=== PATIENT | female | born 1990 | race Caucasian/White ===

== ENCOUNTER 2021-02-13 02:01 | Inpatient (IN) | payer OTHER ==
[2021-02-13] MEDS ORDERED: Nalbuphine 10 MG/1 ML Vial IVPUSH PRN (02:43)
[2021-02-13] MEDS ORDERED: Oxytocin/Lactated Ringers 10 UNIT/1,000 ML BAG IV SCH ×2 (02:45)
[2021-02-13] MEDS ORDERED: Lactated Ringers 1,000 ML IV SCH (02:45)
[2021-02-13] MEDS ORDERED: Lidocaine 1% 50 ML MDV ONE (05:14)
--- NOTE | 2021-02-13 06:14 | PCM.LDHP ---
L&D History of Present Illness - General Date of Service: 02/13/21 Admit Problem/Dx: Patient Status Order with Admit Dx/Problem 02/13/21 02:13 Patient Status [ADT] Routine 02/13/21 02:43 Patient Status [ADT] Routine Admission Diagnosis/Problem Admission Diagnosis/Problem 02/13/21 06:05 Genna is a 31-year-old 1 now para 1-0-0-1 female at 38-5/7 weeks gestational age with an MARINA of 02/22/2021 who was admitted on the a.m. of 02/13/2021 in active labor, with rapidly advancing cervical dilation. Source of Information: Patient History Limitations: Reports: No Limitations - History of Present Illness Introduction:: Genna is a 31-year-old 1 now para 1-0-0-1 female at 38-5/7 weeks gestational age with an MARINA of 02/22/2021 who was admitted on the a.m. of 02/13/2021 in active labor, with rapidly advancing cervical dilation. She is a patient of Dr. Lombardo. History and physical was done after the delivery. Genna reportedly started contractions about the middle of the night. They rapidly progressed to every 3 minutes and intense. She had what arrived in the hospital and was 4 to 5 cm. heart tones were reassuring for the most part. Contractions confirmed at the rate described above. They were very intense. Patient had some bleeding. Membranes appeared intact and time of ru pture membranes is not definite. Minimal fluid was noted. She progressed to complete cervical dilation and delivered rapidly within the course of 2-3 pushes. 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 MARINA 02/22/2021 was determined by an early ultrasound done on 07/04/2020. Patient was seen on a very early basis at 5 weeks and 5 days and was seen regularly during . Her weight gain was from 158 to approximately 159 pounds fundal height growth was normal for gestational age. No problems were encountered during the course of the . Laboratory testing in shows blood to be O- with a negative antibody screen. First hemoglobin was 13.9 and platelets were 191,000. She is rubella positive. RPR was nonreactive. Hepatitis B surface antigen and hepatitis C assays were both negative. Chlamydia and gonorrhea not detected. 1 hour GTT was normal at 104. Second trimester hemoglobin done most recently on 12/05/2020 was 12.0 and platelets were 165,000. Diabetic screen was negative and patient did receive Rh immunoglobulin during the course of the . Group B strep screen negative. Allergies: None Medications: 1. vitamins 1 daily 2. Folic acid 1 tablet/day 3. Flonase 2 sprays in each nostril 1 time per day as needed for allergy Past medical history: 1. Medical history of Hodgkin's lymphoma Past surgical history: 1. Teeth extraction 2014 2. Subcutaneous port placement 2069 related to her Hodgkin's lymphoma Social history: Patient is . Significant other is Aquilino. He is a never smoker. No significant drug or alcohol use noted. They live in [place]. He works outside the home. Family history: Father with hypertension, prostate cancer, skin cancer. Sister with thyroid disease. Mother with skin cancer none MALToma type. Maternal grandfather with heart disease. Paternal grandmother with stomach cancer. Paternal grandfather with heart disease. Review of systems: Upon admission patient was antwan regularly with intense contractions. She did report activity. No loss of fluid noted some bloody show present. In general the patient is well-developed, well-nourished, pleasant female of stated age in no acute distress after the delivery. Skin is warm dry without lesions. HEENT, neck and back within normal limits. Lungs are clear with good breath sounds in all lung pond per nurse evaluation. Cardiovascular exam shows regular and rhythm without murmurs per nurse evaluat ion. Abdomen is gravid with fundal height consistent with dates.. Genital digital exam showed complete cervical dilation patient at the time of first. 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: Oncologic (Cancer) History: Reports: Hodgkin's Lymphoma - Past Surgical History HEENT Surgical History: Reports: Oral Surgery Other HEENT Surgeries/Procedures: wears glasses Social & Family History - Family History Family Medical History: No Pertinent Family History - Tobacco Use Tobacco Use Status *Q: Never Tobacco User Second Hand Smoke Exposure: No - Caffeine Use Caffeine Use: Reports: None - Recreational Drug Use Recreational Drug Use: No H&P Review of Systems - Review of Systems: Review Of Systems: See Below L&D Exam - Exam Exam: See Below - Vital Signs Vital Signs: Last Vital Signs Temp 36.3 C 02/13/21 02:43 Pulse 74 02/13/21 02:43 Resp 16 02/13/21 02:43 BP 138/91 H 02/13/21 02:43 Pulse Ox 100 02/13/21 02:43 Weight: 73.663 kg - Patient Data Lab Results Last 24 hrs: Laboratory Results - last 24 hr 02/13/21 02/13/21 Range/Units 02:45 03:00 WBC 11.11 H (3.98-10.04) K/mm3 RBC 4.02 (3.98-5.22) M/mm3 Hgb 12.9 (11.2-15.7) gm/dl Hct 36.9 (34.1-44.9) % MCV 91.8 (79.4-94.8) fl MCH 32.1 (25.6-32.2) pg MCHC 35.0 (32.2-35.5) g/dl RDW Std Deviation 43.5 (36.4-46.3) fL Plt Count 147 L (182-369) K/mm3 MPV 9.3 L (9.4-12.3) fl Neut % (Auto) 75.5 H (34.0-71.1) % Lymph % (Auto) 17.4 L (19.3-51.7) % [place] % (Auto) 5.9 (4.7-12.5) % Eos % (Auto) 0.7 (0.7-5.8) Baso % (Auto) 0.2 (0.1-1.2) % Neut # (Auto) 8.40 H (1.56-6.13) K/mm3 Lymph # (Auto) 1.93 (1.18-3.74) K/mm3 [place] # (Auto) 0.65 H (0.24-0.36) K/mm3 Eos # (Auto) 0.08 (0.04-0.36) K/mm3 Baso # (Auto) 0.02 (0.01-0.08) K/mm3 SARS-CoV-2 RNA (ILSA) Negative (NEGATIVE) Result Diagrams: 02/13/21 03:00 - Problem List (1) 38 weeks gestation of SNOMED Code(s): 33805792 ICD Code: Z3A.38 - 38 WEEKS GESTATION OF Status: Acute Current Visit: Yes Problem List Initiated/Reviewed/Updated: Yes Orders Last 24hrs: Active Orders 24 hr Category Date Time Status Patient Status [ADT] Routine ADT 02/13/21 02:43 Active Activity as Tolerated [RC] PFP Care 02/13/21 02:43 Active Communication Order [RC] ASDIRECTED Care 02/13/21 02:43 Active Heart Tones [RC] ASDIRECTED Care 02/13/21 02:43 Active Non Stress Test [RC] PER UNIT ROUTINE Care 02/13/21 02:13 Active Notify Provider [RC] PFP Care 02/13/21 02:43 Active Notify Provider [RC] PRN Care 02/13/21 02:43 Active Peripheral IV Care [RC] Q4HR Care 02/13/21 02:43 Active Pump Management, Intrathecal [RC] ASDIRECTED Care 02/13/21 02:44 Active Up ad Romy [RC] ASDIRECTED Care 02/13/21 02:14 Active Urinary Catheter Assessment [RC] ASDIRECTED Care 02/13/21 02:43 Active Vaginal Exam [RC] PRN Care 02/13/21 02:14 Active Vital Signs [RC] PER UNIT ROUTINE Care 02/13/21 02:13 Active Vital Signs [RC] PER UNIT ROUTINE Care 02/13/21 02:43 Active Regular Diet [DIET] Diet 02/13/21 Breakfast Active RAPID PLASMA REAGIN,RPR [CHEM] Routine Lab 02/13/21 03:00 Received Lactated Ringers [Ringers, Lactated] 1,000 ml Med 02/13/21 02:45 Active IV ASDIRECTED Nalbuphine [Nubain] Med 02/13/21 02:43 Active 10 mg IVPUSH Q2H PRN Oxytocin/Lactated Ringers [Pitocin in LR 10 Units/1,000 Med 02/13/21 02:45 Active ML] 10 unit in 1,000 ml IV .CONTINUOUS Oxytocin/Lactated Ringers [Pitocin in LR 10 Units/1,000 Med 02/13/21 02:45 Active ML] 10 unit in 1,000 ml IV .CONTINUOUS Sodium Chloride 0.9% [Saline Flush] Med 02/13/21 09:00 Active 10 ml FLUSH 0900,2100 Electronic Heart Tones Ext w TOCO [WOMSER] Oth 02/13/21 02:43 Ordered Routine Electronic Heart Tones Internal [WOMSER] Per Unit Ot 02/13/21 02:43 Ordered Routine Peripheral IV Insertion Adult [OM.PC] Routine Oth 02/13/21 02:43 Ordered Resuscitation Status Routine Resus Stat 02/13/21 02:13 Ordered Medication Orders Lactated Ringer's (Ringers, Lactated) 1,000 mls @ 100 mls/hr IV ASDIRECTED JANELL Oxytocin/Lactated Ringer's (Pitocin In Lr 10 Units/1,000 Ml) 10 unit in 1,000 mls @ 500 mls/hr IV .CONTINUOUS JANELL Oxytocin/Lactated Ringer's (Pitocin In Lr 10 Units/1,000 Ml) 10 unit in 1,000 mls @ 100 mls/hr IV .CONTINUOUS JANELL Nalbuphine HCl (Nalbuphine 10 Mg/1 Ml Vial) 10 mg IVPUSH Q2H PRN PRN Reason: Pain Sodium Chloride (Sodium Chloride 0.9% 10 Ml Syringe) 10 ml FLUSH 0900,2100 [facility] Assessment/Plan Comment:: 1.Genna is a 31-year-old 1 now para 1-0-0-1 female at 38-5/7 weeks gestational age with an MARINA of 02/22/2021 who was admitted on the a.m. of 02/13/2021 in active labor, with rapidly advancing cervical dilation. H&P done after delivery 2. Group B strep negative 3. Patient preferred not to have disease during 4. Patient plans to breast-feed Plan: 1. Support breast-feeding decision 2. Routine care including analgesia, support, monitoring 3. Rh immunoglobulin as indicated by blood testing.
--- NOTE | 2021-02-13 06:21 | PCM.SN.2 ---
- Free Text/Narrative Note: Delivery note: Stage I: Genna is a 31-year-old 1 now para 1-0-0-1 female at 38-5/7 weeks gestational age with an MARINA of 02/22/2021 who was admitted on the a.m. of 02/13/2021 in active labor, with rapidly advancing cervical dilation. Upon my arrival in L&D patient was . She had received no analgesia. heart tones were generally reassuring. Moderate amount of bloody show was noted. No significant mono amniotic fluid present. Contractions/pushing was near continuous. Stage II: Genna delivered a viable, duncan, male with Apgars of 8 and 9, a weight of 2840 g (6 pounds 4 ounces) and a length of 19.5 inches at 0519 hours on 02/13/2021. Baby is placed on mom's abdomen., Nose and mouth were bulb suctioned and baby was dried with warm blanket. Pitocin was increased to 500 cc an hour for IV to facilitate increase in uterine tone and decrease likelihood of bleeding. The baby was vigorous and crying. The umbilical cord is allowed to pulsate x3 minutes and then was clamped x2 and cut by the baby's father Aquilino. The umbilical cord had 3 vessels. Cord blood was obtained. Patient was noted to have 2 medial labia minora lacerations. These were infiltrated with lidocaine 1% - 10 cc total then were repaired with interrupted sutures of 3-0 Monocryl. 2 sutures required on the left side and 4 sutures required on the right side. Patient tolerated this well. Stage III: The placenta delivered at 0526 hrs. It delivered in a Marie presentation, appeared intact and complete and was discarded per patient desire. Small amount of clot was noted behind the placenta and a small abruption of placenta cannot be ruled out. Estimate blood loss was 200 cc. Patient plans to breast-feed. Condition: Good.
[2021-02-13] MEDS ORDERED: Docusate Sodium 100 MG Cap PO PRN (07:18)
[2021-02-13] MEDS ORDERED: Benzocaine/Menthol 20%-0.5% Spray 78 GM Cannister TOP PRN (07:18)
[2021-02-13] MEDS ORDERED: Witch Hazel Medicated Pads 40/Jar TOP PRN (07:18)
[2021-02-13] MEDS ORDERED: Acetaminophen 325 MG Tab PO PRN (07:18)
[2021-02-13] MEDS ORDERED: Ibuprofen 600 MG Tab PO PRN (07:18)
[2021-02-13] MEDS ORDERED: Sodium Chloride 0.9% 10 ML Syringe FLUSH SCH (09:00)
[2021-02-13] MEDS: Prenatal Multivitamin with Calcium/Folic Acid/Iron Tab PO SCH (17:57)
--- NOTE | 2021-02-14 08:16 | PCM.DCSUM1 ---
Discharge Summary - Hospital Course Brief History: Admitted in labor. Relatively rapid uncomplicated thereafter. Uncomplicated course. Diagnosis: Stroke: No - Discharge Data Discharge Date: 02/14/21 Discharge Disposition: Home, Self-Care 01 Condition: Good - Referral to Home Health Primary Care Physician: Mary Lombardo MD - Patient Instructions Diet: Usual Diet as Tolerated Activity: No Strenuous Activities Driving: May Drive Today Showering/Bathing: May Shower - Discharge Plan *PRESCRIPTION DRUG MONITORING PROGRAM REVIEWED*: No *COPY OF PRESCRIPTION DRUG MONITORING REPORT IN PATIENT HELDER: No Home Medications: Home Meds Vits96/Iron Fum/Folic [ Tablet] 1 tab PO DAILY 02/13/21 [History] Referrals: Mary Lombardo MD [Primary Care Provider] - (1 week) - Discharge Summary/Plan Comment DC Time >30 min.: No Total # of Minutes for Discharge Time: 15 - General Info Date of Service: 02/14/21 Functional Status: Reports: Pain Controlled - Review of Systems General: Reports: No Symptoms HEENT: Reports: No Symptoms Pulmonary: Reports: No Symptoms Cardiovascular: Reports: No Symptoms Gastrointestinal: Reports: No Symptoms Genitourinary: Reports: No Symptoms Musculoskeletal: Reports: No Symptoms Skin: Reports: No Symptoms Neurological: Reports: No Symptoms Psychiatric: Reports: No Symptoms - Patient Data Vitals - Most Recent: Last Vital Signs Temp 36.7 C 02/14/21 04:28 Pulse 48 L 02/14/21 04:28 Resp 14 02/14/21 04:28 BP 132/80 02/14/21 04:28 Pulse Ox 99 02/14/21 04:28 Weight - Most Recent: 73.663 kg I&O - Last 24 hours: Intake & Output 02/13/21 02/14/21 02/14/21 22:59 06:59 14:59 Intake Total 240 Balance 240 Lab Results - Last 24 hrs: Laboratory Results - last 24 hr 02/13/21 Range/Units 03:00 RPR Non-reactive (NONREACTIVE) Med Orders - Current: Current Medications Acetaminophen (Acetaminophen 325 Mg Tab) 650 mg PO Q4H PRN PRN Reason: mild pain or fever Benzocaine/Menthol (Benzocaine/Menthol 20%-0.5% [place] 78 Gm Cannister) 0 gm TOP ASDIRECTED PRN PRN Reason: Perineal Comfort Measure Last Admin: 02/13/21 07:25 Dose: 1 can Documented by: Docusate Sodium (Docusate Sodium 100 Mg Cap) 100 mg PO BID PRN PRN Reason: Constipation Ibuprofen (Ibuprofen 600 Mg Tab) 600 mg PO Q4H PRN PRN Reason: Mild pain or fever Prenat Multivit/[place]/Iron/Folic Ac ( Multivitamin With Calcium/Folic Acid/Iron Tab) 1 each PO DAILY [facility] Last Admin: 02/13/21 17:57 Dose: Not Given Documented by: Lauri French (Lauri French Medicated Pads 40/Jar) 1 pad TOP ASDIRECTED PRN PRN Reason: Perineal Comfort Measure Last Admin: 02/13/21 07:24 Dose: 1 tub Documented by: Discontinued Medications Lactated Ringer's (Ringers, Lactated) 1,000 mls @ 100 mls/hr IV ASDIRECTED [facility] Oxytocin/Lactated Ringer's (Pitocin In Lr 10 Units/1,000 Ml) 10 unit in 1,000 mls @ 500 mls/hr IV .CONTINUOUS [facility] Last Admin: 02/13/21 05:25 Dose: 500 mls/hr Documented by: Oxytocin/Lactated Ringer's (Pitocin In Lr 10 Units/1,000 Ml) 10 unit in 1,000 mls @ 100 mls/hr IV .CONTINUOUS [facility] Lidocaine HCl (Lidocaine 1% 50 Ml Mdv) Confirm Administered Dose 50 ml .ROUTE .[facility] ONE Stop: 02/13/21 05:15 Last Admin: 02/13/21 05:30 Dose: 50 ml Documented by: Nalbuphine HCl (Nalbuphine 10 Mg/1 Ml Vial) 10 mg IVPUSH Q2H PRN PRN Reason: Pain Sodium Chloride (Sodium Chloride 0.9% 10 Ml Syringe) 10 ml FLUSH 0900,2100 JANELL - Exam General: Reports: Alert, Oriented HEENT: Reports: Pupils Equal, Pupils Reactive, EOMI, Mucous Membr. Moist/[place] Neck: Reports: Supple Lungs: Reports: Clear to Auscultation, Normal Respiratory Effort Cardiovascular: Reports: Regular Rate, Regular Rhythm GI/Abdominal Exam: Normal Bowel Sounds, Soft, Non-Tender, No Organomegaly, No Distention, No Abnormal Bruit, No Mass, Pelvis Stable Back Exam: Reports: Normal Inspection, Full Range of Motion Extremities: Normal Inspection, Normal Range of Motion, Non-Tender, No Pedal Edema, Normal Capillary Refill Skin: Reports: Warm, Dry, Intact Wound/Incisions: Reports: Healing Well Neurological: Reports: No New Focal Deficit Psy/Mental Status: Reports: Alert, Normal Affect, Normal Mood
[2021-02-14 09:10] VITALS: BP 130/92; PULSE 60
[2021-02-14] MEDS: Prenatal Multivitamin with Calcium/Folic Acid/Iron Tab PO SCH (09:15)
== END 2021-02-14 10:57 | disposition home or self-care (01) | DRG 807 ==
LOC: JD.OBCHECK 02:01 → JD.OB 02:04 → JD.OBCHECK 02:42 → JD.OB 02:43 → OBSVTOIN 05:19 → JD.OB 05:20
PROVIDERS: ADMIT Obstetrics & Gynecology; ATTEND Obstetrics & Gynecology
PROC: 10E0XZZ Delivery of Products of Conception, External Approach (ICD-10-PCS; principal; 2021-02-13)
PROC: 0UQMXZZ Repair Vulva, External Approach (ICD-10-PCS; 2021-02-13)
DX: O70.0 First degree perineal laceration during delivery (principal); Z37.0 Single live birth; Z3A.38 38 weeks gestation of pregnancy; Z20.822 Contact with and (suspected) exposure to COVID-19
CPT/HCPCS: 36415; 59025; 59409; 85025; 86592; J2001; J2590; U0002

== ENCOUNTER 2024-12-27 07:07 | Inpatient (IN) | payer OTHER, BC ==
[2024-12-27] MEDS ORDERED: Ondansetron 4 MG/2 ML SDV IVPUSH PRN (07:34)
[2024-12-27] MEDS ORDERED: Nalbuphine 10 MG/1 ML Vial IVPUSH PRN (07:34)
[2024-12-27] MEDS ORDERED: Oxytocin/0.9 % Sodium Chloride 30 UNIT/500 ML BAG IV SCH (07:45)
[2024-12-27] MEDS ORDERED: Lactated Ringers 1,000 ML IV SCH (07:45)
[2024-12-27 07:59] LABS: BASOPHILS ABSOLUTE AUTO 0.0 K/mm3 (0.0-0.2); BASOPHILS PERCENT AUTO 0.4 % (0.0-1.0); EOSINOPHILS ABSOLUTE AUTO 0.0 K/mm3 (0.0-0.4); EOSINOPHILS PERCENT AUTO 0.2 % (0.0-6.0); IMMATURE GRAN ABSOLUTE AUTO 0.05 K/mm3 (0.00-0.05); IMMATURE GRAN PERCENT AUTO 0.4 % (0.0-0.4); LYMPHOCYTES ABSOLUTE AUTO 1.9 K/mm3 (1.0-4.8); LYMPHOCYTES PERCENT AUTO 16.9 % (24.0-44.0); MEAN PLATELET VOLUME 9.1 fl (9.4-12.3); MONOCYTES ABSOLUTE AUTO 0.5 K/mm3 (0.0-0.8); MONOCYTES PERCENT AUTO 4.4 % (0.0-8.0); NEUTROPHILS ABSOLUTE AUTO 8.7 K/mm3 (1.8-7.7); NEUTROPHILS PERCENT AUTO 77.7 % (41.0-71.0); NRBC ABSOLUTE 0.00 (0.00-0.02); NRBC PERCENT 0.0 % (0.0-0.2); PLATELET COUNT,PLT 151 K/mm3 (150-400); RED BLOOD CELL COUNT 4.15 M/mm3 (4.10-5.30); WHITE BLOOD CELL COUNT,WBC 11.21 K/mm3 (3.9-11.3)
[2024-12-27] MEDS ORDERED: ePHEDrine 50 MG/ML SDV IVPUSH PRN (07:59)
[2024-12-27] MEDS ORDERED: fentaNYL 100 MCG/2 ML SDV EPIDUR PRN (07:59)
[2024-12-27] MEDS ORDERED: Bupivacaine/fentaNYL/NS 100 ML Bag EPIDUR PRN (07:59)
[2024-12-27] MEDS ORDERED: diphenhydrAMINE 50 MG/ML SDV IVPUSH PRN (07:59)
[2024-12-27] MEDS: Oxytocin/0.9 % Sodium Chloride 30 UNIT/500 ML BAG IV SCH (09:07)
[2024-12-27] MEDS: Witch Hazel Medicated Pads 40/Jar TOP PRN (10:53)
[2024-12-27] MEDS: Benzocaine/Menthol 20%-0.5% Spray 78 GM Cannister TOP PRN (10:53)
[2024-12-29 19:58] VITALS: PULSE 66
[2024-12-29 20:07] VITALS: BP 140/82
== END 2024-12-29 20:25 | disposition home or self-care (01) | DRG 807 ==
LOC: JD.OBCHECK 07:07 → JD.OB 07:08 → JD.OBCHECK 07:33 → JD.OB 07:34 → OBSVTOIN 08:59 → JD.OB 09:00
PROVIDERS: ADMIT Obstetrics & Gynecology; ATTEND Obstetrics & Gynecology
PROC: 3E0334Z Introduction of Serum, Toxoid and Vaccine into Peripheral Vein, Percutaneous Approach (ICD-10-PCS; principal; 2024-12-27)
PROC: 10E0XZZ Delivery of Products of Conception, External Approach (ICD-10-PCS; principal; 2024-12-27)
DX: O80 Encounter for full-term uncomplicated delivery (principal); Z37.0 Single live birth; Z3A.37 37 weeks gestation of pregnancy; Z98.890 Other specified postprocedural states
CPT/HCPCS: 36415; 59025; 59409; 85025; 85461; 86592; 86850; 86870; 86900; 86901; J2791; J7999